=== PATIENT | male | born 1940 | race African-American/Black ===

== ENCOUNTER 2019-07-01 16:21 | Observation (INO) ==
[2019-07-01] MEDS ORDERED: SODIUM CHLORIDE 0.9% 500 ML IV STA (17:06)
[2019-07-01 17:59] LABS: Basophils % 0.3 % (0.0-0.8); Eosinophils # 0.2 10*3/uL (0.0-0.87); Eosinophils % 2.1 % (0.00-10.9); Hematocrit 42.4 VOL% (42.0-52.0); Hemoglobin 13.7 GM/DL (14.0-18.0); Immature Granulocytes % 0.4 %; Immature Granulocytes Absolute 0.04 #; Lymphocytes # 1.3 10*3/uL (1.4-4.0); Lymphocytes % 14.2 % (21.2-54.2); Mean Corpuscular HGB Conc 32.3 GM/DL (32-36); Mean Corpuscular Volume 84.3 FL (87-102); Mean Platelet Volume 10.9 FL (9.6-12.0); Monocytes % 9.1 % (1.7-12.7); Neutrophils % 73.9 % (38.7-73.9); Platelet Count 176 T/CUMM (130-400); Red Blood Count 5.03 MC/CUMM (3.8-5.5); Red Cell Distribution Width 13.7 % (9.3-17.3); White Blood Count 9.3 T/CUMM (4-12)
[2019-07-01 18:18] LABS: Blood Urea Nitrogen 20 MG/DL (7-18); Calcium 9.1 MG/DL (8.5-10.1); Estimated Glom Filtration Rate 37 ML/MIN; Glucose 96 MG/DL (74-106)
[2019-07-01] MEDS ORDERED: ACETAMINOPHEN 325 MG TABLET PO PRN (19:15)
[2019-07-01] MEDS ORDERED: ENOXAPARIN 30 MG/0.3 ML SYRINGE SUBCUT SCH (21:00)
[2019-07-01] MEDS ORDERED: INFLUENZA VIRUS VACCINE 0.5 ML SYRINGE IM ONE (21:36)
[2019-07-01] MEDS: SODIUM CHLORIDE 0.9% 1,000 ML IV SCH (21:50)
[2019-07-02 05:53] LABS: Calcium 8.3 MG/DL (8.5-10.1)
[2019-07-02] MEDS ORDERED: MORPHINE 4 MG/1 ML VIAL IV PRN (15:26)
[2019-07-02] MEDS ORDERED: ASPIRIN CHEW 81 MG TABLET PO ONE (15:26)
[2019-07-02] MEDS: ENOXAPARIN 80 MG/0.8 ML SYRINGE SUBCUT SCH (16:26)
[2019-07-02] MEDS: NITROGLYCERIN 2% OINT 1 INCH/GM PACK TOP SCH ×2 (16:26→21:57)
[2019-07-02] MEDS ORDERED: ENOXAPARIN 40 MG/0.4 ML SYRINGE SUBCUT SCH (21:00)
[2019-07-03] MEDS: SODIUM CHLORIDE 0.9% 1,000 ML IV SCH ×3 (00:01→09:23)
[2019-07-03 02:05] LABS: Basophils % 0.4 % (0.0-0.8); Eosinophils # 0.2 10*3/uL (0.0-0.87); Eosinophils % 2.9 % (0.00-10.9); Hematocrit 32.8 VOL% (42.0-52.0); Hemoglobin 10.5 GM/DL (14.0-18.0); Immature Granulocytes % 0.1 %; Immature Granulocytes Absolute 0.01 #; Lymphocytes # 1.6 10*3/uL (1.4-4.0); Lymphocytes % 22.2 % (21.2-54.2); Mean Corpuscular Volume 84.5 FL (87-102); Mean Platelet Volume 10.8 FL (9.6-12.0); Monocytes % 10.1 % (1.7-12.7); Neutrophils % 64.3 % (38.7-73.9); Platelet Count 157 T/CUMM (130-400); Red Blood Count 3.88 MC/CUMM (3.8-5.5); Red Cell Distribution Width 13.8 % (9.3-17.3); White Blood Count 7.2 T/CUMM (4-12)
[2019-07-03 02:25] LABS: Troponin I 0.836 NG/ML (0.00-0.045)
[2019-07-03 02:34] LABS: Alanine Aminotransferase 49 U/L (16-61); Albumin 2.4 G/DL (3.4-5.0); Alkaline Phosphatase 97 U/L (45-117); Aspartate Amino Transferase 23 U/L (0-37); Bilirubin,Total < 0.39 MG/DL (0.2-1.0); Blood Urea Nitrogen 22 MG/DL (7-18); Calcium 7.8 MG/DL (8.5-10.1); Estimated Glom Filtration Rate 48 ML/MIN; Glucose 95 MG/DL (74-106); HDL Cholesterol 44 MG/DL (40-60); Osmolality,Calculated 292.6 MOS/KG (273-304); Risk Ratio 3.07; Total Protein 5.2 G/DL (6.4-8.3); Triglycerides 50 MG/DL (2-150)
[2019-07-03] MEDS: ENOXAPARIN 80 MG/0.8 ML SYRINGE SUBCUT SCH (04:07)
[2019-07-03] MEDS: NITROGLYCERIN 2% OINT 1 INCH/GM PACK TOP SCH ×2 (04:08→09:22)
[2019-07-03 08:26] LABS: Troponin I 0.591 NG/ML (0.00-0.045)
[2019-07-03 11:48] VITALS: BP 165/84
== END 2019-07-03 12:40 | disposition home or self-care (01) ==
LOC: EDUNIT# → EDBD → N.EDINP 16:21 → N.ED 16:21 → SUATTDRO 19:15 → N.2E 20:43
PROVIDERS: ADMIT Internal Medicine; ATTEND Internal Medicine Cardiovascular Disease